=== PATIENT | male | born 1975 | race Two or more races ===

== ENCOUNTER 2024-08-10 04:37 | Emergency (ER) | payer OTHER ==
[~2024-08-10] VITALS: Ht 167.6 cm; Wt 87.0 kg
[2024-08-10 04:55] VITALS: O2SAT 99
[2024-08-10] MEDS ORDERED: ACETAMINOPHEN 325MG TABLET PO STA (06:04)
[2024-08-10] MEDS ORDERED: ONDANSETRON 4MG ODT PO STA (06:04)
[2024-08-10 06:38] LABS: BASOPHILS % 0.2 % (0.0-2.0); EOSINOPHILS % 0.2 % (0.0-5.0); HEMATOCRIT. 42.2 % (42.0-52.0); HEMOGLOBIN. 14.2 g/dL (14.0-18.0); LYMPHOCYTES % 7.7 % (20.0-50.0); MEAN CORPUSCULAR HEMOGLOBIN 28.5 pg (28.0-32.0); MEAN CORPUSCULAR HGB CONC 33.7 g/dL (31.0-37.0); MEAN CORPUSCULAR VOLUME 84.6 fL (80.0-94.0); MEAN PLATELET VOLUME 9.2 fl (7.4-10.4); MONOCYTES % 4.7 % (2.0-8.0); NEUTROPHILS % 87.2 % (40.0-76.0); PLATELET 193 x1000/uL (130-400); RED BLOOD CELL COUNT 4.99 mill/uL (4.7-6.1); RED CELL DISTRIBUTION WIDTH 13.2 % (11.6-14.6)
[2024-08-10 06:41] LABS: CHLORIDE 104 mEq/L (98-107); POTASSIUM 3.6 mEq/L (3.5-5.1); SODIUM 137 mEq/L (136-145)
[2024-08-10 06:42] LABS: CARBON DIOXIDE 27 mEq/L (21-32)
[2024-08-10 06:43] LABS: CALCIUM 9.7 mg/dL (8.7-10.4)
[2024-08-10 06:47] LABS: GLUCOSE 141 mg/dL (70-105); UREA NITROGEN BLOOD 10 mg/dL (9-23)
[2024-08-10] MEDS: ACETAMINOPHEN 325MG TABLET PO SCH (08:38)
[2024-08-10] MEDS: ONDANSETRON 4MG ODT PO SCH (08:39)
[2024-08-10] MEDS ORDERED: TOPUD PO (09:14)
[2024-08-10] MEDS ORDERED: ONDA4TAB50 PO (09:14)
[2024-08-10 09:28] VITALS: BP 134/78; PULSE 109; RESP 14; TEMP 36.8; O2SAT 99
== END 2024-08-10 09:38 | disposition home or self-care (01) ==
LOC: ER 05:05
DX: S29.9XXA Unspecified injury of thorax, initial encounter (principal); E78.00 Pure hypercholesterolemia, unspecified; Z79.899 Other long term (current) drug therapy; V43.52XA Car driver injured in collision with other type car in traffic accident, initial encounter; Y93.89 Activity, other specified; Y92.89 Other specified places as the place of occurrence of the external cause; Y99.8 Other external cause status
CPT/HCPCS: 99284; 93880; 71250; 76705; 71045; 80048; 85025; 36415; Q0162